=== PATIENT | male | born 1950 | race Caucasian/White ===

== ENCOUNTER → 2017-06-24 | Outpatient (CLI) | payer BC | END | disposition home or self-care (01) | DX: M17.11 Unilateral primary osteoarthritis, right knee (principal); R26.2 Difficulty in walking, not elsewhere classified; M25.561 Pain in right knee; M25.661 Stiffness of right knee, not elsewhere classified; M62.81 Muscle weakness (generalized); Z74.1 Need for assistance with personal care | CPT/HCPCS: 97161 GP; 97165 GO; 97530 GP; 97535 GO ==

== ENCOUNTER 2017-07-06 22:01 | Inpatient (IN) | payer BC, OTHER ==
[~2017-07-06] VITALS: Ht 175.3 cm; Wt 94.0 kg
[~2017-07-06 22:01] MED LIST: BENICAR40 MG PO; CENTRUM SILVER1 EAC3 PO; FENOFIBRATE160 M1 PO; LO-DOSE ASPIRIN81 M1 PO; LYSINE1000 MG PO; MAGNESIUM200 MG PO; POTASSIUM GLUCO99 M1 PO; VITAMIN B COMP1 EACH PO; VITAMIN B-121000 MC3 PO; VITAMIN B-6100 MG PO; VITAMIN C500 M6 PO; VITAMIN D32000 UNI1 PO; VITAMIN E400 UNIT PO; ZINC30 M1 PO
[2017-07-07] MEDS ORDERED: FERROUS SULFAT325 MG PO ×2 (07:18)
[2017-07-07 07:23] VITALS: BP 140/78
[2017-07-07 11:31] LABS: HEMATOCRIT 36.7 % (38.0-50.0); HEMOGLOBIN 12.7 G/DL (12.5-16.6); MCH 32.6 PG (29.0-34.0); MCHC 34.6 G/DL (30.0-36.0); MCV 94.3 FL (86-99); PLATELET COUNT 220 K/uL (156-360); RBC DIS.WIDTH-SD 41.5 % (39-53); RED BLOOD COUNT 3.89 M/uL (4.00-5.50); WHITE BLOOD COUNT 6.3 K/uL (4.1-10.2)
[2017-07-07 11:57] VITALS: BP 121/74
[2017-07-07 15:31] VITALS: BP 137/85
[2017-07-07 19:49] VITALS: BP 129/67
[2017-07-08 00:22] VITALS: BP 123/58
[2017-07-08 04:29] VITALS: BP 112/63
[2017-07-08 05:48] LABS: HEMATOCRIT 31.9 % (38.0-50.0); MCV 94.1 FL (86-99)
[2017-07-08 06:10] LABS: CHLORIDE 105 MEQ/L (99-109); CREATININE 1.2 MG/DL (0.6-1.3); GFR ESTIMATE (CALCULATED) > 59 mL/min/ (58.99-99999); GLUCOSE 119 mg/dL (70-99); POTASSIUM 4.4 MEQ/L (3.7-5.4); SODIUM 137 MEQ/L (136-147); UREA NITROGEN (BUN) 20 mg/dL (9-23)
[2017-07-08 07:37] VITALS: BP 125/58
[2017-07-08 11:31] VITALS: BP 124/67
[2017-07-08 15:36] VITALS: BP 120/59
[2017-07-08 20:09] VITALS: BP 122/59
[2017-07-09 00:03] VITALS: BP 111/55
[2017-07-09 04:17] VITALS: BP 112/68
[2017-07-09 07:13] LABS: HEMATOCRIT 30.6 % (38.0-50.0); HEMOGLOBIN 10.8 G/DL (12.5-16.6); MCV 94.2 FL (86-99)
[2017-07-09 08:00] VITALS: BP 114/55
[2017-07-09] MEDS ORDERED: SENNA PLUS TAB1 EACH PO (08:44)
[2017-07-09] MEDS ORDERED: CELECOXIB200 MG PO (08:44)
[2017-07-09] MEDS ORDERED: LOVENOX40 MG/0.4 SC (08:44)
[2017-07-09] MEDS ORDERED: HYDROCODON-ACE1 EAC7 PO (08:44)
[2017-07-09 12:11] VITALS: BP 117/59
== END 2017-07-09 14:21 | DRG 470 ==
LOC: ENRESERV 22:01 → 3WEST 07-07 06:40 → 2SOUTH 07-07 06:40 → 3WEST 07-07 11:28 → 2SOUTH 07-07 14:25 → 3WEST 07-09 14:21
PROVIDERS: Orthopaedic Surgery
PROC: 0SRC0J9 Replacement of Right Knee Joint with Synthetic Substitute, Cemented, Open Approach (ICD-10-PCS; principal; 2017-07-07)
PROC: 3E0T3BZ Introduction of Anesthetic Agent into Peripheral Nerves and Plexi, Percutaneous Approach (ICD-10-PCS; 2017-07-07)
DX: M17.11 Unilateral primary osteoarthritis, right knee (principal); I10 Essential (primary) hypertension; Z79.82 Long term (current) use of aspirin
CPT/HCPCS: 36415; 73560; 80048; 80053; 85014; 85018; 85025; 85027; 85610; 85730; 86850; 86900; 86901; 87641; C1713; J0131; J0690; J1100; J1650; J1885; J2250; J2795; J3010; J7030; J7050